=== PATIENT | female | born 1955 | race Caucasian/White ===

== ENCOUNTER 2016-05-02 13:55 | Emergency (ER) | payer BC ==
[~2016-05-02] VITALS: Wt 77.0 kg
[2016-05-02] MEDS ORDERED: IBUP-1542 PO (14:25)
[2016-05-02] MEDS ORDERED: D-ME473S18 PO (14:25)
[2016-05-02] MEDS ORDERED: AZIT250T94 PO (14:25)
--- NOTE | 2016-05-02 15:09 | ERD ---
ER Documentation Chief Complaint Date/Time DATE: 05/02/16 TIME: 15:09 Chief Complaint COUGH AND FEVER FOR THE PAST 3 DAYS. NON PRODUCTIVE. HPI 61-year-old female otherwise healthy comes in with cough, congestion, sore throat for the past 3 days. She states that she believes she had a fever the first day that resolved. She denies chest pain, shortness of breath, vomiting, diarrhea. Denies recent travel. ROS All systems reviewed and are negative except as per history of present illness. Medications Home Meds Active Scripts Ibuprofen* (Motrin*) 600 Mg Tab, 600 MG PO Q6, #30 TAB Prov:NILDA SALDANA PA-C 05/02/16 Dextromethorphan Hb-Promethazine Hcl (Promethazine DM Syrup) 473 Ml Syrup, 5 ML PO Q6H Y for COUGH, #4 OZ Prov:NILDA SALDANA PA-C 05/02/16 Azithromycin* (Zithromax*) 250 Mg Tablet, 250 MG PO .ZPACK DIRECTED, #6 TAB TAKE 500 MG (2 TABS) THE FIRST DAY THEN 250 MG (1 TAB) DAYS 2-5 Prov:NILDA SALDANA PA-C 05/02/16 Physical Exam Vitals Vital Signs Date Time Temp Pulse Resp B/P Pulse Ox O2 Delivery O2 Flow Rate FiO2 05/02/16 14:00 97.9 78 20 165/73 98 Physical Exam = General: Well-developed, well-nourished. The patient appears in no acute distress. HEENT: Head is normocephalic, atraumatic. No scleral icterus. Pupils are equal , round, and reactive. Oral mucous membranes are moist. No pharyngeal erythema. Neck: Supple. Nontender. Lungs: Clear to auscultation. Normal air movement. Heart: Regular rate and rhythm. S1 and S2 are normal. No murmurs, gallops, or rubs. Abdomen: Soft, nontender, nondistended. Bowel sounds are normoactive. Extremities: No clubbing or cyanosis. Normal pulses. Moving extremities x 4. No weakness. Neurologic: Alert and oriented 3. No focal deficits. Skin: Normal turgor. No rash or lesions. Procedures/MDM The patient is a 61-year-old female who comes in with an acute upper respiratory infection, presumed viral. The patient has a differential diagnosis of a viral upper respiratory infection, bacterial upper respiratory infection, bronchitis, pneumonia, pharyngitis, laryngitis, epiglottitis, croup, pneumonia. Patient has a normal pulmonary examination, clear breath sounds, normal pulse oximetry, with no corrective measures needed at this time. Fluids, rest, antipyretics were encouraged. Rx to fill if symptoms do not improve in 2 days. She is to return if she has any worsening symptoms or fevers. Departure Diagnosis: Primary Impression: Acute URI Condition: Good Patient Instructions: Uri, Viral, No Abx (Adult) Additional Instructions: Llame al doctor MAANA y jose juan edda MAGALYS PARA DENTRO DE 1-2 FUNG.Dgale a la secretaria que nosotros le instruimos hacer esta magalys.Avise o llame si coulter condicin se empeora antes de la magalys. Regresa aqui si peor o no mejor. NILDA SALDANA PA-C May 02, 2016 15:09
== END 2016-05-02 14:22 | disposition home or self-care (01) ==
LOC: FTE 13:55 → E/R 14:22
DX: J06.9 Acute upper respiratory infection, unspecified (principal)
CPT/HCPCS: 99282

== ENCOUNTER 2016-07-07 13:58 | Emergency (ER) | payer BC ==
[~2016-07-07] VITALS: Ht 162.6 cm; Wt 100.0 kg
[~2016-07-07 13:58] MED LIST: AZIT250T94 PO; D-ME473S18 PO; IBUP-1542 PO
[2016-07-07 14:12] VITALS: Ht 162.6 cm; Wt 100.0 kg
[2016-07-07] MEDS ORDERED: ACET500C5 PO (15:03)
--- NOTE | 2016-07-07 15:12 | ERD ---
ER Documentation Chief Complaint Date/Time DATE: 07/07/16 TIME: 15:06 Chief Complaint rash on the left side of abdomen HPI This is a 61-year-old female who presents the emergency department today complaining of a rash on the left side of her abdomen for the past several weeks. Patient states she went to her clinic and was told that she had herpes and that she needed to take her medication for 20 days. States that she still has some burning. States that the medication she is taking is making her feel "sick and giving me a headache and making my blood pressure increase". States the other medication she is taking "makes her very sleepy and drowsy". States that she was given an injection and was told that she needed "2 more injections ". She does not know what the injections were. Denies any fevers or chills. ROS All systems reviewed and are negative except as per history of present illness. Medications Home Meds Active Scripts Acetaminophen* (Tylophen*) 500 Mg Capsule, 1 CAP PO Q6H Y for PAIN AND OR ELEVATED TEMP, #30 CAP Prov:KIM GRAF PA-C 07/07/16 Ibuprofen* (Motrin*) 600 Mg Tab, 600 MG PO Q6, #30 TAB Prov:NILDA SALDANA PA-C 05/02/16 Dextromethorphan Hb-Promethazine Hcl (Promethazine DM Syrup) 473 Ml Syrup, 5 ML PO Q6H Y for COUGH, #4 OZ Prov:NILDA SALDANA PA-C 05/02/16 Azithromycin* (Zithromax*) 250 Mg Tablet, 250 MG PO .ZPACK DIRECTED, #6 TAB TAKE 500 MG (2 TABS) THE FIRST DAY THEN 250 MG (1 TAB) DAYS 2-5 Prov:NILDA SALDANA PA-C 05/02/16 Physical Exam Vitals Vital Signs Date Time Temp Pulse Resp B/P Pulse Ox O2 Delivery O2 Flow Rate FiO2 07/07/16 14:12 98.1 94 18 129/65 99 Physical Exam Const: No acute distress Head: Atraumatic Eyes: Normal Conjunctiva ENT: Normal External Ears, Nose and Mouth. Neck: Full range of motion..~ No meningismus. Resp: Clear to auscultation bilaterally Cardio: Regular rate and rhythm, no murmurs Abd: Soft, non tender, non distended. Normal bowel sounds. No right upper quadrant pain. No right lower quadrant pain. No left lower quadrant pain. Skin: Left side of abdomen evidence of healing dried lesions in a dermatomal pattern with no purulent drainage. Back: No midline or flank tenderness Ext: No cyanosis, or edema Neur: Awake and alert Psych: Normal Mood and Affect Procedures/MDM This is a 61-year-old female who presents to the emergency department today complaining of a rash on the left side of her abdomen as well as that her medications she is taking is making her feel "sick". Patient states she has been taking 800 mg 5 times a day of acyclovir and was told to take it for 20 days. Patient was also given 5 days of prednisone. She was also given diclofenac and triamcinolone cream as well as hydroxyzine. Patient symptoms at this time appear to be most consistent with postherpetic neuralgia. There is a very small amount of dried lesions evident most consistent with healing herpes zoster. I have explained to the patient that she may stop taking the acyclovir if it is making her feel "sick" as she has already been taking it since June 22, for the last 15 days. I also explained to the patient that hydroxyzine will probably make her feel drowsy and she may take that at night if she has any itching but that she does not need to take it during the day. Patient states she has a history of gastritis and therefore cannot take Motrin and I therefore prescribed her Tylenol. I also explained to her that I do not know what the medication that she was given was from her injection I have explained to her that she should follow back up with her clinic. She also does have an appointment with Dr. Palomares her primary care physician but not until September. Again patient symptoms at this time appear most consistent with postherpetic neuralgia. I do not feel the benefit would benefit from the gabapentin at this time as she appears to have many symptoms that she attributes to multiple medications. Patient is afebrile and otherwise well-appearing. Her blood pressure is 129/65. She is not hypertensive. Low suspicion for hypertensive emergency or urgency. Low suspicion for cellulitis, sepsis, deep space infection, SJS. At this time the patient is stable for discharge and outpatient management. Patient should follow up with their PCP in the next 1-2 days. They may return to the emergency department sooner for any persistent or worsening of symptoms. Patient understood and agreed with the plan. Departure Diagnosis: Primary Impression: Rash and other nonspecific skin eruption Condition: Fair Patient Instructions: Shingles (Herpes Zoster) Referrals: your clinic Additional Instructions: Llame al doctor MAANA y jose juan edda MAGALYS PARA DENTRO DE 1-2 FUNG.Dgale a la secretaria que nosotros le instruimos hacer esta magalys.Avise o llame si coulter condicin se empeora antes de la magalys. Regresa aqui si peor o no mejor. Take Tylenol for pain KIM GRAF PA-C Jul 07, 2016 15:12
== END 2016-07-07 15:04 | disposition home or self-care (01) ==
LOC: E/R 13:58
DX: R21 Rash and other nonspecific skin eruption (principal)
CPT/HCPCS: 99283

== ENCOUNTER 2016-08-22 13:42 | Emergency (ER) | payer BC ==
[~2016-08-22] VITALS: Wt 75.0 kg
[~2016-08-22 13:42] MED LIST changes: +ACET500C5 PO
[2016-08-22] MEDS ORDERED: AZIT250T94 PO (16:16)
[2016-08-22] MEDS ORDERED: D-ME473S18 PO (16:16)
[2016-08-22] MEDS ORDERED: ALBU8.5H3 INH (16:17)
--- NOTE | 2016-08-22 16:21 | ERD ---
ER Documentation Chief Complaint Date/Time DATE: 08/22/16 TIME: 16:19 Chief Complaint cough x 3 days HPI This is a 61-year-old female presents to the ER with a cough for the last 4 days. Patient states that cough is productive with yellow sputum. She admits to wheezing at night. She however does not have a history of asthma. She denies any chest pain shortness of breath at this time. Patient also complaining of itchy and sore throat. She admits to body pain. Patient denies any nausea vomiting or diarrhea. There are no sick contacts at home. ROS 12 point review of systems was done, all negative except per HPI. Medications Home Meds Active Scripts Albuterol Sulfate* (Proair HFA*) 8.5 Gm Hfa.aer.ad, 2 PUFF INH Q4, #1 INHALER Prov:MARYAM MORGAN 08/22/16 Dextromethorphan Hb-Promethazine Hcl (Promethazine DM Syrup) 473 Ml Syrup, 5 ML PO Q6H Y for COUGH, #4 OZ Prov:MARYAM MORGAN 08/22/16 Azithromycin* (Zithromax*) 250 Mg Tablet, 250 MG PO .ZPACK DIRECTED, #6 TAB TAKE 500 MG (2 TABS) THE FIRST DAY THEN 250 MG (1 TAB) DAYS 2-5 Prov:MARYAM MORGAN 08/22/16 Acetaminophen* (Tylophen*) 500 Mg Capsule, 1 CAP PO Q6H Y for PAIN AND OR ELEVATED TEMP, #30 CAP Prov:KIM GRAF PA-C 07/07/16 Ibuprofen* (Motrin*) 600 Mg Tab, 600 MG PO Q6, #30 TAB Prov:NILDA SALDANA PA-C 05/02/16 Dextromethorphan Hb-Promethazine Hcl (Promethazine DM Syrup) 473 Ml Syrup, 5 ML PO Q6H Y for COUGH, #4 OZ Prov:NILDA SALDANA PA-C 05/02/16 Azithromycin* (Zithromax*) 250 Mg Tablet, 250 MG PO .ZPACK DIRECTED, #6 TAB TAKE 500 MG (2 TABS) THE FIRST DAY THEN 250 MG (1 TAB) DAYS 2-5 Prov:NILDA SALDANA PA-C 05/02/16 PMhx/Soc Medical and Surgical Hx: pt denies Medical Hx, pt denies Surgical Hx Hx Alcohol Use: No Hx Substance Use: No Hx Tobacco Use: No Smoking Status: Never smoker Physical Exam Vitals Vital Signs Date Time Temp Pulse Resp B/P Pulse Ox O2 Delivery O2 Flow Rate FiO2 08/22/16 13:44 98.3 85 18 126/77 99 Physical Exam GENERAL: The patient is well-developed, well-nourished, in no acute distress. NECK: Cervical spine is non tender with no step off. Supple, no nuchal rigidity HEENT: Atraumatic. Pupils equal, round and reactive to light. Extraocular muscles are grossly intact. Conjunctivae pink, no discharge. Bilateral tympanic membranes are clear with no evidence of erythema, effusion or dulling of the light reflex. Tonsilar erythema with no exudates or uvular deviation. Clear rhinorrhea. RESPIRATORY: Clear to auscultation bilaterally. There are no rales, wheezes or rhonchi. HEART: Regular rate and rhythm. No murmurs, clicks, rubs or gallops. EXTREMITIES: No clubbing or cyanosis. Full range of motion. Grossly neurovascularly intact. NEUROLOGIC: Alert and oriented. Cranial nerves II through XII are intact. SKIN: There is no rash. The skin is warm and dry. Procedures/MDM Differential diagnosis includes but is not limited to; Viral URI, allergic rhinitis, bronchitis, pertussis,pneumonia. She will be treated for possible bacterial bronchitis with antibiotics. Clinical suspicion for pneumonia is low as patient appears well, is not hypoxic or in any respiratory distress. Additionally, patients physical examination is benign. Plan was discussed with patient they understand and agree. Patient needs to follow up with PCP in 1-2 days or return to ER sooner if symptoms worsen. Departure Diagnosis: Primary Impression: Bronchitis Condition: Stable Patient Instructions: Bronchitis With Wheezing (Adult) Additional Instructions: Llame al doctor MAANA y jose juan edda MAGALYS PARA DENTRO DE 1-2 FUNG.Dgale a la secretaria que nosotros le instruimos hacer esta magalys.Avise o llame si coulter condicin se empeora antes de la magalys. Regresa aqui si peor o no mejor. MARYAM MORGAN August 22, 2016 16:20
== END 2016-08-22 17:22 | disposition home or self-care (01) ==
LOC: FTE 13:42
DX: J20.9 Acute bronchitis, unspecified (principal)
CPT/HCPCS: 99284